=== PATIENT | male | born 1960 | race African-American/Black ===

== ENCOUNTER 2020-09-08 11:19 | Emergency (ER) | payer OTHER ==
[~2020-09-08] VITALS: Ht 177.8 cm; Wt 80.0 kg
[~2020-09-08 11:19] MED LIST: ALBU18HF2 IH; ASPI-1497 PO; ATEN50TA PO; DILT180C66 PO; FOLI-43 PO; HYDR-523 PO; MULT-1146 PO; THIA50TA10 PO
[2020-09-08] MEDS ORDERED: SODIUM CHLORIDE 0.9% 1,000 ML IV ONE (12:00)
[2020-09-08 12:28] LABS: HEMATOCRIT. 42.8 % (42.0-52.0); HEMOGLOBIN. 14.6 g/dL (14.0-18.0); MEAN CORPUSCULAR HEMOGLOBIN 32.9 pg (28.0-32.0); MEAN CORPUSCULAR VOLUME 96.3 fL (80.0-94.0); MEAN PLATELET VOLUME 9.4 fl (7.4-10.4); PLATELET 190 x1000/uL (130-400); RED BLOOD CELL COUNT 4.44 mill/uL (4.7-6.1); RED CELL DISTRIBUTION WIDTH 15.1 % (11.6-14.6)
[2020-09-08 12:44] LABS: CHLORIDE 97 mEq/L (98-107)
[2020-09-08 12:48] LABS: ETHANOL BLOOD < 10 mg/dL
[2020-09-08 12:51] LABS: CREATINE KINASE 431 IU/L (39-308)
[2020-09-08 14:10] LABS: PLATELET ESTIMATE NORMAL
[2020-09-08] MEDS ORDERED: ASPIRIN 325MG EC TABLET PO ONE (15:00)
[2020-09-08 15:32] LABS: CLARITY URINE TURBID (CLEAR); COLOR URINE ORANGE (YELLOW); KETONES URINE TRACE (NEGATIVE); LEUKOCYTE ESTERASE URINE 1+ (NEGATIVE); NITRITE URINE POSITIVE (NEGATIVE); OCCULT BLOOD URINE NEGATIVE (NEGATIVE); PROTEIN URINE 2+ (NEGATIVE); SPECIFIC GRAVITY URINE 1.027 (1.005-1.030)
[2020-09-08 15:35] LABS: PROTHROMBIN TIME 10.8 sec (9.6-11.0)
[2020-09-08 15:55] LABS: *AMPHETAMINES SCREEN URINE NEGATIVE (NEGATIVE); *BARBITURATES SCREEN URINE NEGATIVE (NEGATIVE); *BENZODIAZEPINES SCREEN URINE NEGATIVE (NEGATIVE); *COCAINE SCREEN URINE PRESUMTIVE POSITIVE (NEGATIVE); CANNABINOID URINE SCREEN NEGATIVE (NEGATIVE); METHADONE URINE SCREEN NEGATIVE (NEGATIVE); OPIATES URINE SCREEN NEGATIVE (NEGATIVE); PHENCYCLIDINE URINE SCREEN NEGATIVE (NEGATIVE)
[2020-09-08 18:01] VITALS: BP 107/69
== END 2020-09-08 18:19 | disposition short-term general hospital (02) ==
LOC: ER 11:31
DX: G90.4 Autonomic dysreflexia (principal); E86.0 Dehydration; I10 Essential (primary) hypertension; Z85.46 Personal history of malignant neoplasm of prostate; Z79.82 Long term (current) use of aspirin; Z79.899 Other long term (current) drug therapy; Z86.79 Personal history of other diseases of the circulatory system
CPT/HCPCS: 36415; 70450; 71045; 80053; 80305; 80320; 81003; 82550; 84484; 85025; 85610; 93005; 99285; J7030; G0480

== ENCOUNTER 2022-06-25 11:09 | Emergency (ER) | payer MEDICAID, OTHER ==
[~2022-06-25] VITALS: Ht 182.9 cm; Wt 105.0 kg
[2022-06-25] MEDS ORDERED: IBUPROFEN 600MG TABLET PO STA (11:32)
[2022-06-25 12:58] LABS: *AMPHETAMINES SCREEN URINE NEGATIVE (NEGATIVE); *BARBITURATES SCREEN URINE NEGATIVE (NEGATIVE); *BENZODIAZEPINES SCREEN URINE NEGATIVE (NEGATIVE); *COCAINE SCREEN URINE PRESUMTIVE POSITIVE (NEGATIVE); CANNABINOID URINE SCREEN NEGATIVE (NEGATIVE); METHADONE URINE SCREEN NEGATIVE (NEGATIVE); OPIATES URINE SCREEN NEGATIVE (NEGATIVE); PHENCYCLIDINE URINE SCREEN NEGATIVE (NEGATIVE)
[2022-06-25] MEDS ORDERED: IBUPROFEN 600MG TABLET PO NR (14:00)
[2022-06-25 14:39] LABS: HEMATOCRIT. 32.5 % (42.0-52.0); HEMOGLOBIN. 9.6 g/dL (14.0-18.0); MEAN CORPUSCULAR HEMOGLOBIN 21.9 pg (28.0-32.0); MEAN PLATELET VOLUME 8.3 fl (7.4-10.4); PLATELET 217 x1000/uL (130-400); RED BLOOD CELL COUNT 4.39 mill/uL (4.7-6.1); RED CELL DISTRIBUTION WIDTH 19.4 % (11.6-14.6)
[2022-06-25 14:42] LABS: CHLORIDE 101 mEq/L (98-107)
[2022-06-25 14:49] LABS: ETHANOL BLOOD 22 mg/dL
[2022-06-25 20:36] LABS: PLATELET ESTIMATE NORMAL
[2022-06-25] MEDS ORDERED: IBUPROFEN 600MG TABLET PO ONE (21:15)
[2022-06-26 06:00] VITALS: BP 136/88
== END 2022-06-26 06:30 | disposition home or self-care (01) ==
LOC: ER 11:15
DX: I16.0 Hypertensive urgency (principal); D64.9 Anemia, unspecified; I10 Essential (primary) hypertension; T40.5X1A Poisoning by cocaine, accidental (unintentional), initial encounter; Y92.89 Other specified places as the place of occurrence of the external cause; I49.9 Cardiac arrhythmia, unspecified
CPT/HCPCS: 36415; 80053; 80305; 80320; 85025; 93005; 99285; G0480

== ENCOUNTER 2022-08-10 08:55 | Emergency (ER) | payer OTHER ==
[~2022-08-10] VITALS: Ht 175.3 cm; Wt 82.0 kg
[2022-08-10] MEDS ORDERED: ACETAMINOPHEN 325MG TABLET PO ONE (09:15)
[2022-08-10 10:36] LABS: CHLORIDE 103 mEq/L (98-107)
[2022-08-10 10:39] LABS: HEMATOCRIT. 33.3 % (42.0-52.0); HEMOGLOBIN. 9.9 g/dL (14.0-18.0); MEAN CORPUSCULAR HEMOGLOBIN 21.8 pg (28.0-32.0); MEAN CORPUSCULAR VOLUME 73.5 fL (80.0-94.0); PLATELET 243 x1000/uL (130-400); RED BLOOD CELL COUNT 4.53 mill/uL (4.7-6.1)
[2022-08-10 10:40] LABS: PROTHROMBIN TIME 10.6 sec (9.6-11.0)
[2022-08-10 12:04] LABS: PLATELET ESTIMATE NORMAL
[2022-08-10 13:25] VITALS: BP 107/60
== END 2022-08-10 13:45 | disposition short-term general hospital (02) ==
LOC: ER 08:55 → CANBEDREQ 12:03 → ER 13:45
DX: M79.605 Pain in left leg (principal); M79.604 Pain in right leg; R26.2 Difficulty in walking, not elsewhere classified; I10 Essential (primary) hypertension; Z59.02 Unsheltered homelessness; Z60.8 Other problems related to social environment; Z85.46 Personal history of malignant neoplasm of prostate
CPT/HCPCS: 36415; 80053; 85025; 85610; 99285; Z7610